=== PATIENT | female | born 1980 | race African-American/Black ===

== ENCOUNTER 2016-10-13 18:32 | Emergency (ER) | payer OTHER ==
[~2016-10-13] VITALS: Ht 162.6 cm; Wt 54.4 kg
[~2016-10-13 18:32] MED LIST: HYDR-971 PO; IBUP-1007 PO; NITR100C62 PO
[2016-10-13 19:02] VITALS: BP 168/107
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
[2016-10-13] MEDS ORDERED: IBUPROFEN 800 MG TABLET. PO ONE (19:15)
[2016-10-13 19:47] LABS: BARBITURATES NEG (NEG); BENZODIAZEPINES NEG (NEG); CANNABINOIDS POS (NEG); COCAINE POS (NEG); METHADONE NEG (NEG); OPIATES NEG (NEG); PHENCYCLIDINE POS (NEG)
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
== END 2016-10-13 20:49 | disposition home or self-care (01) ==
LOC: ER 18:32
DX: S02.2XXA Fracture of nasal bones, initial encounter for closed fracture (principal); R51 Headache; M25.512 Pain in left shoulder; H57.12 Ocular pain, left eye; I10 Essential (primary) hypertension; F10.10 Alcohol abuse, uncomplicated; F12.10 Cannabis abuse, uncomplicated; F15.10 Other stimulant abuse, uncomplicated; Y08.89XA Assault by other specified means, initial encounter; Y93.89 Activity, other specified; Y99.8 Other external cause status; Y92.89 Other specified places as the place of occurrence of the external cause
CPT/HCPCS: 70480; 73030; 80307; 81025; 99285-25; G0479